=== PATIENT | female | born 1990 | race Two or more races ===

== ENCOUNTER 2017-01-17 06:46 | Emergency (ER) | payer MEDICAID ==
[~2017-01-17] VITALS: Ht 165.1 cm; Wt 61.2 kg
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
[2017-01-17] MEDS ORDERED: ONDANSETRON 4 MG TAB.RAPDIS ONE (08:02)
[2017-01-17] MEDS ORDERED: HYDROCODONE/APAP 5/325MG 1 EACH TABLET ONE (08:02)
[2017-01-17] MEDS: HYDROCODONE/APAP 5/325MG 1 EACH TABLET PO ONE (08:07)
[2017-01-17] MEDS: ONDANSETRON 4 MG TAB.RAPDIS SL ONE (08:08)
[2017-01-17 08:13] LABS: BASOPHILS % (AUTO) 0.7 % (0.0-2.0); EOSINOPHILS # (AUTO) 0.1 /CMM (0.0-0.7); EOSINOPHILS % (AUTO) 1.5 % (0.0-6.0); HEMATOCRIT 41 % (33-45); LYMPHOCYTES # (AUTO) 1.7 /CMM (0.8-4.8); LYMPHOCYTES % (AUTO) 26.8 % (20.0-44.0); MEAN CORPUSCULAR HEMOGLOBIN 30 PG (26.0-33.0); MEAN CORPUSCULAR HGB CONC 34 g/dl (31.0-36.0); MEAN CORPUSCULAR VOLUME 88 fL (82-100); MONOCYTES # (AUTO) 0.5 /CMM (0.1-1.30); MONOCYTES % (AUTO) 8.1 % (2.0-12.0); NEUTROPHILS # (AUTO) 3.9 /CMM (1.8-8.9); NEUTROPHILS % (AUTO) 62.9 % (43.0-81.0); PLATELET COUNT (AUTO) 201 /CMM (150-450); RDW COEFFICIENT OF VARIATION 12.7 (11.5-15.0); RED BLOOD CELL COUNT(AUTO) 4.69 MIL/uL (4.0-5.2); WHITE BLOOD COUNT (AUTO) 6.2 K/uL (4.3-11.0)
[2017-01-17 08:29] LABS: ALBUMIN 3.9 g/dL (3.4-5.0); BILIRUBIN,DIRECT 0.2 mg/dL (0.0-0.2); BILIRUBIN,TOTAL 1.1 mg/dL (0.2-1.0); CALCIUM, SERUM 9.1 mg/dL (8.5-10.1); CREATININE 0.9 mg/dL (0.6-1.3); POTASSIUM 3.9 mmol/L (3.5-5.1); TOTAL PROTEIN, SERUM 7.7 g/dL (6.4-8.2)
--- NOTE | 2017-01-17 08:45 | NUR ---
PT AMBULATED TO RESTROOM. AMBULATORY WITH STEADY GAIT.
--- NOTE | 2017-01-17 08:51 | NUR ---
PATIENT TO CT.
[2017-01-17 10:35] VITALS: BP 115/66
== END 2017-01-17 10:35 | disposition home or self-care (01) ==
LOC: ER 06:49
DX: S13.9XXA Sprain of joints and ligaments of unspecified parts of neck, initial encounter (principal); S71.112A Laceration without foreign body, left thigh, initial encounter; S60.512A Abrasion of left hand, initial encounter; Z88.6 Allergy status to analgesic agent; Z88.5 Allergy status to narcotic agent; J45.909 Unspecified asthma, uncomplicated; V43.52XA Car driver injured in collision with other type car in traffic accident, initial encounter; Y93.89 Activity, other specified; Y92.488 Other paved roadways as the place of occurrence of the external cause; Y99.8 Other external cause status
CPT/HCPCS: 36415; 71010; 72125; 73130; 80048; 80076; 83690; 84703; 85025; 99285; A4606; A6402; A6403; Q0162; Z7610

== ENCOUNTER 2017-01-24 13:19 | Emergency (ER) | payer SELFPAY ==
[~2017-01-24] VITALS: Ht 165.1 cm; Wt 63.5 kg
[2017-01-24 13:23] VITALS: BP 117/70
[2017-01-24] MEDS ORDERED: TDAP [DIPH/PERTUSSIS/TET] 0.5 ML VIAL IM ONE (13:34)
[2017-01-24] MEDS: TDAP [DIPH/PERTUSSIS/TET] 0.5 ML VIAL IM ONE (13:41)
== END 2017-01-24 14:31 | disposition home or self-care (01) ==
LOC: ER 13:23
DX: S71.111D Laceration without foreign body, right thigh, subsequent encounter (principal); J45.909 Unspecified asthma, uncomplicated; Z88.1 Allergy status to other antibiotic agents; Z88.5 Allergy status to narcotic agent
CPT/HCPCS: 90715; A4606; Z7610